=== PATIENT | female | born 1985 | race Caucasian/White ===

== ENCOUNTER 2016-05-20 17:26 | Emergency (ER) | payer OTHER ==
[~2016-05-20] VITALS: Ht 152.4 cm; Wt 54.0 kg
[2016-05-20 19:15] VITALS: BP 121/69
[2016-05-20 20:22] LABS: HEPATITIS B SURFACE ANTIGEN NEGATIVE
[2016-05-20 20:50] LABS: HEPATITIS C VIR.AB < 0.02 INDEXVAL (0.00-0.80)
== END 2016-05-20 19:35 | disposition home or self-care (01) ==
LOC: ER 18:24
DX: R18.8 Other ascites (principal)
CPT/HCPCS: 36415; 99282